=== PATIENT | female | born 1975 | race Caucasian/White ===

== ENCOUNTER → 2016-06-24 | Outpatient (CLI) | payer OTHER ==
[2004-02-19 05:39] VITALS: PULSE 150; TEMP 98.2
== END ==
LOC: COL.RAD 04-06 13:15
DX: Z53.9 Procedure and treatment not carried out, unspecified reason (principal)

== ENCOUNTER → 2019-03-07 | Outpatient (CLI) | payer OTHER ==
[2004-02-19 05:39] VITALS: PULSE 150; TEMP 98.2
== END ==
LOC: MC.RAD 15:52
DX: Z12.31 Encounter for screening mammogram for malignant neoplasm of breast (principal); N63.41 Unspecified lump in right breast, subareolar

== ENCOUNTER → 2019-03-11 | Outpatient (CLI) | payer OTHER ==
[2004-02-19 05:39] VITALS: PULSE 150; TEMP 98.2
== END ==
LOC: MC.RAD 13:00
DX: N63.10 Unspecified lump in the right breast, unspecified quadrant (principal)

== ENCOUNTER → 2020-02-14 | Outpatient (CLI) | payer BC ==
[2004-02-19 05:39] VITALS: PULSE 150; TEMP 98.2
== END ==
LOC: COL.CARD 11:20
DX: I10 Essential (primary) hypertension (principal); R00.0 Tachycardia, unspecified; Z82.49 Family history of ischemic heart disease and other diseases of the circulatory system

== ENCOUNTER → 2020-03-31 | Outpatient (CLI) | payer BC ==
[2004-02-19 05:39] VITALS: PULSE 150; TEMP 98.2
== END ==
LOC: MC.RAD 03-27 08:15
DX: Z12.31 Encounter for screening mammogram for malignant neoplasm of breast (principal); N63.10 Unspecified lump in the right breast, unspecified quadrant; N63.20 Unspecified lump in the left breast, unspecified quadrant

== ENCOUNTER → 2021-07-15 | Outpatient (CLI) | payer OTHER ==
[2004-02-19 05:39] VITALS: PULSE 150; TEMP 98.2
== END ==
LOC: MC.RAD 15:01
DX: Z12.31 Encounter for screening mammogram for malignant neoplasm of breast (principal)

== ENCOUNTER → 2023-06-29 | Outpatient (CLI) | payer BC ==
[2004-02-19 05:39] VITALS: PULSE 150; TEMP 98.2
== END ==
LOC: MHCPAIN 13:04
DX: M54.16 Radiculopathy, lumbar region (principal); M54.32 Sciatica, left side; M79.18 Myalgia, other site; M25.552 Pain in left hip
CPT/HCPCS: G0463

== ENCOUNTER → 2023-07-10 | Outpatient (CLI) | payer BC ==
[2004-02-19 05:39] VITALS: PULSE 150; TEMP 98.2
== END ==
LOC: COL.RAD 12:05
DX: M51.16 Intervertebral disc disorders with radiculopathy, lumbar region (principal); M47.26 Other spondylosis with radiculopathy, lumbar region; M47.27 Other spondylosis with radiculopathy, lumbosacral region